=== PATIENT | male | born 1940 | race Caucasian/White ===

== ENCOUNTER 2017-07-29 12:08 | Day surgery (SDC) | payer MEDICARE ==
[2017-07-25 10:52] VITALS: BMI 33.0
[~2017-07-29 12:08] MED LIST: LACTATED RINGERS 1,000 ML IV SCH
[2017-07-29 12:23] VITALS: TEMP 97.1
[2017-07-29] MEDS ORDERED: LIDOCAINE 1% 20 ML VIAL (10MG/ML) FOR IV START INTRADERMA ONE (12:27)
[2017-07-29] MEDS ORDERED: LIDOCAINE 1% INJ 10MG/ML (20 ML MDV) ONE (13:08)
[2017-07-29] MEDS ORDERED: PROPOFOL 10 MG/ML 20 ML VIAL IV ONE (13:08)
--- NOTE | 2017-07-29 13:37 | P.PCN ---
Date of Procedure: 07/29/17 Preoperative Diagnosis: Postoperative Diagnosis: Procedure(s) Performed: Procedure: Esophagogastroduodenoscopy and biopsy. Preoperative diagnosis: Chronic reflux symptoms requiring ongoing therapy. Postoperative diagnosis: 1. Small sliding hiatal hernia with no obvious esophagitis or complicated reflux disease. 2. Mild antral gastritis. Preparation sedation: Was provided by anesthesia. Brief clinical history: The patient is a 77-year-old male who was evaluated in the office last month regarding heartburn. The patient had issues with reflux and heartburn since 1999 and and has been on treatment on and off with both PPI and H2 blockers. His symptoms has worsened over the prior 4-5 months and he was changed from Zantac to Nexium when he was seen in the office and he reported incomplete and he continues to have cough and intermittent dysphagia. The patient has history of pulmonary fibrosis. This evaluation is to assess for esophagitis, complicated reflux disease or other pathology. He had colonoscopies with me in the past but he does not believe he had any upper endoscopy before today. Procedure: With the patient on his left lateral decubitus position and after informed consent and adequate sedation, the Olympus-GIF 160 video upper endoscope was used and was advanced under direct vision through the cricopharyngeus down the esophagus. GE junction was around 40 cm from the incisors and there was a small sliding hiatal hernia. The esophagus did not show any obvious esophagitis or complicated reflux disease. The stomach was then insufflated with air and inspected in detail including the retroflex view in the cardia. There was some mottling and erythema in the antrum but no ulcers or erosions. Pyloric channel, duodenal bulb, was bulbar area and descending duodenum appeared within normal limits. I obtained multiple biopsies from the duodenum, antrum and esophagus before the endoscope was withdrawn. The patient tolerated the procedure well. Plan: The patient was reassured. Will await biopsy results. We will continue antireflux diet and measures and acid suppressive therapy. He will follow-up in the office as planned and would keep you updated on his progress. Implants: Indications for Procedure: Operative Findings: Description of Procedure:
[2017-07-29 14:02] VITALS: BP 120/71; PULSE 90; RESP 16
== END 2017-07-29 14:08 | disposition home or self-care (01) ==
LOC: ORWHC2ENDO 12:08
DX: K21.0 Gastro-esophageal reflux disease with esophagitis (principal); K44.9 Diaphragmatic hernia without obstruction or gangrene; K29.50 Unspecified chronic gastritis without bleeding; G47.33 Obstructive sleep apnea (adult) (pediatric); I10 Essential (primary) hypertension; E78.5 Hyperlipidemia, unspecified; J84.10 Pulmonary fibrosis, unspecified; Z88.8 Allergy status to other drugs, medicaments and biological substances; Z79.899 Other long term (current) drug therapy
CPT/HCPCS: 88305; 88342; 43239; J2001; J2704

== ENCOUNTER → 2018-02-11 | Outpatient (CLI) | payer MEDICARE ==
--- NOTE | 2018-02-12 21:42 | ECHOF ---
Referral Reason:R06.09 Other forms of dyspnea MEASUREMENTS -------- HEIGHT: 177.8 cm WEIGHT: 105.2 kg BP: 122/76 RVIDd: 3.6 cm (< 3.3) IVSd: 1.4 cm (0.6 - 1.1) LVIDd: 4.9 cm (3.9 - 5.3) LVPWd: 1.5 cm (0.6 - 1.1) EDV(Teich): 115 ml IVSs: 1.4 cm LVIDs: 4.0 cm LVPWs: 1.7 cm ESV(Teich): 70 ml EF(Teich): 39 % %FS: 19 % SV(Teich): 45 ml LA Diam: 3.6 cm (2.7 - 3.8) LVOT Diam: 2.4 cm LVLd A4C: 8.0 cm LVEDV MOD A4C: 82 ml LVLs A4C: 7.6 cm LVESV MOD A4C: 50 ml LVEF MOD A4C: 40 % SV MOD A4C: 33 ml LVLd A2C: 8.3 cm LVEDV MOD A2C: 86 ml LVLs A2C: 7.6 cm LVESV MOD A2C: 43 ml LVEF MOD A2C: 50 % SV MOD A2C: 43 ml EF Biplane: 46 % LVEDV MOD BP: 84 ml LVESV MOD BP: 46 ml LALs A4C: 5.0 cm LAAs A4C: 16.7 cm LAESV A-L A4C: 47 ml LAESV MOD A4C: 43 ml LALs A2C: 5.1 cm LAAs A2C: 16.8 cm LAESV A-L A2C: 47 ml LAESV MOD A2C: 45 ml LAESV(A-L): 47 ml LAESV Index (A-L): 21.28 ml/m Ao Diam: 4.0 cm (2.0 - 3.7) AV Cusp: 1.8 cm (1.5 - 2.6) EPSS: 1.0 cm MV E Aguila: 0.60 m/s MV DecT: 306 ms MV Dec Whitley: 1.9 m/s MV A Aguila: 0.87 m/s MV E/A Ratio: 0.69 E/E': 11.14 E': 0.05 m/s AV Vmax: 1.37 m/s AV maxP.55 mmHg TR Vmax: 2.62 m/s TR maxP.56 mmHg RAP: 5.00 mmHg RVSP: 32.56 mmHg MV EF SLOPE: 50.50 mm/s (70 - 150) MV EXCURSION: 1.27 cm (> 18.000) FINDINGS -------- Sinus rhythm. This was a technically adequate study. The left ventricular size is normal. There is moderate concentric left ventricular hypertrophy. O verall left ventricular systolic function is mildly impaired with, an EF between 45 - 50 %. Basal i nferior LV wall motion is hypokinetic. Basal inferoseptal LV wall motion is hypokinetic. The right ventricle is mildly enlarged. Normal LA size by volume 22+/-6 ml/m2. The right atrium is normal in size. There is mild aortic valve sclerosis. Trace amount of aortic regurgitation. The mitral valve leaflets are mildly thickened. Mild mitral annular calcification present. Mild m itral regurgitation is present. Mild tricuspid regurgitation present. Right ventricular systolic pressure is normal at < 35 mmHg. Trace/mild (physiologic) pulmonic regurgitation. The aortic root is dilated measuring 4.0cm. There is no pericardial effusion. CONCLUSIONS -------- 1. Sinus rhythm. 2. This was a technically adequate study. 3. The left ventricular size is normal. 4. There is moderate concentric left ventricular hypertrophy. 5. Overall left ventricular systolic function is mildly impaired with, an EF between 45 - 50 %. 6. Basal inferior LV wall motion is hypokinetic. 7. Basal inferoseptal LV wall motion is hypokinetic. 8. The right ventricle is mildly enlarged. 9. Normal LA size by volume 22+/-6 ml/m2. 10. The right atrium is normal in size. 11. There is mild aortic valve sclerosis. 12. Trace amount of aortic regurgitation. 13. The mitral valve leaflets are mildly thickened. 14. Mild mitral annular calcification present. 15. Mild mitral regurgitation is present. 16. Mild tricuspid regurgitation present. 17. Right ventricular systolic pressure is normal at < 35 mmHg. 18. Trace/mild (physiologic) pulmonic regurgitation. 19. The aortic root is dilated measuring 4.0cm. 20. There is no pericardial effusion. FAMILY MANAGER: MAGDIEL Mercer
== END | disposition home or self-care (01) ==
LOC: RADECHMAIN 12:58
PROVIDERS: ATTEND Family Medicine
DX: I08.3 Combined rheumatic disorders of mitral, aortic and tricuspid valves (principal)
CPT/HCPCS: 93306

== ENCOUNTER 2019-05-01 18:04 | Emergency (ER) | payer MEDICARE ==
--- NOTE | 2019-05-01 18:12 | ED ---
Dizziness HPI - General Stated Complaint: DIZZINESS Time Seen by Provider: 05/01/19 18:10 Source: RN notes reviewed, old records reviewed - History of Present Illness Initial Comments: This is a 78-year-old male the ER for evaluation presents today for evaluation regards to dizziness. Dizziness and difficulty with ambulation, patient feeling considerably trying to walk can't catch his balance occasionally has some blurred vision. No prior history of significant similar symptoms. No recent head injuries and no other complaints. MD Complaint: dizziness, difficulty walking -: hour(s) Timing: gradual onset Description: sense of movement, "room spinning", off-balance, difficulty walking History of Same: No History of Trauma: No Severity: moderate Improves With: nothing Worsens With: movement Associated Symptoms: denies other symptoms - Related Data Home Medications Medication Instructions Recorded Confirmed Aspirin EC [Ecotrin Low Dose] 81 mg PO HS 04/12/16 05/01/19 Cholecalciferol [Vitamin D3 (25 5,000 unit PO DAILY 04/12/16 05/01/19 Mcg = 1000 Iu)] Loratadine [Claritin] 10 mg PO HS 04/12/16 05/01/19 Magnesium Oxide [Mag-Ox] 400 mg PO HS 04/12/16 05/01/19 Pravastatin Sodium [Pravachol] 40 mg PO HS 04/12/16 05/01/19 Esomeprazole Magnesium [NexIUM] 20 mg PO DAILY 07/25/17 05/01/19 Benazepril HCl [Lotensin] 40 mg PO DAILY 05/01/19 05/01/19 Fluticasone Nasal [place] [Flonase 2 spray EA NOSTRIL DAILY 05/01/19 05/01/19 Nasal [place]] Furosemide [Lasix] 20 mg PO DAILY 05/01/19 05/01/19 Meloxicam [Mobic] 15 mg PO DAILY 05/01/19 05/01/19 Multivitamins, Thera [Multivitamin 1 tab PO DAILY 05/01/19 05/01/19 (formulary)] Oxybutynin Chloride [Oxybutynin 15 mg PO DAILY 05/01/19 05/01/19 Chloride ER] Rivastigmine Tartrate [Exelon] 3 mg PO BID 05/01/19 05/01/19 Spironolactone [Aldactone] 25 mg PO DAILY 05/01/19 05/01/19 Vit C/E/Zn/Coppr/Lutein/Zeaxan 1 cap PO BID 05/01/19 05/01/19 [Preservision Areds 2 Softgel] Allergies Allergy/AdvReac Type Severity Reaction Status Date / Time diphenhydramine HCl AdvReac Confusion Verified 05/01/19 18:30 [From Benadryl] Review of Systems ROS Statement: Those systems with pertinent positive or pertinent negative responses have been documented in the HPI. ROS Other: All systems not noted in ROS Statement are negative. Past Medical History Past Medical History: CVA/TIA, GERD/Reflux, Hyperlipidemia, Hypertension, Osteoarthritis (OA), Pneumonia, Sleep Apnea/CPAP/BIPAP Additional Past Medical History / Comment(s): PULMONARY FIBROSIS, bronchitis,sinus problems, shingles >5 years, constipation, TIA 2011 no effects, constipation, History of Any Multi-Drug Resistant Organisms: None Reported Past Surgical History: Appendectomy Additional Past Surgical History / Comment(s): anal fistula repair, colonoscopy, clifford cataracts-lens implant Past Anesthesia/Blood Transfusion Reactions: No Reported Reaction Smoking Status: Never smoker - Past Family History Mother Additional Family Medical History / Comment(s): with blood clot in childbirth Father Family Medical History: Cancer Additional Family Medical History / Comment(s): lung cancer General Exam General appearance: alert, in no apparent distress Head exam: Present: atraumatic, normocephalic, normal inspection Eye exam: Present: normal appearance, PERRL, EOMI. Absent: scleral icterus, conjunctival injection, nystagmus, periorbital swelling ENT exam: Present: normal exam, mucous membranes moist Neck exam: Present: normal inspection. Absent: tenderness, meningismus, lymphadenopathy Respiratory exam: Present: normal lung sounds bilaterally. Absent: respiratory distress, wheezes, rales, rhonchi, stridor Cardiovascular Exam: Present: regular rate, normal rhythm, normal heart sounds. Absent: systolic murmur, diastolic murmur, rubs, gallop, clicks GI/Abdominal exam: Present: soft, normal bowel sounds. Absent: distended, tenderness, guarding, rebound, rigid Extremities exam: Present: normal inspection, full ROM, normal capillary refill. Absent: tenderness, pedal edema, joint swelling, calf tenderness Back exam: Present: normal inspection Neurological exam: Present: alert, oriented X3, CN II-XII intact Psychiatric exam: Present: normal affect, normal mood Skin exam: Present: warm, dry, intact, normal color. Absent: rash Course Vital Signs 05/01/19 05/01/19 18:11 20:31 Temperature 98.6 F Pulse Rate 62 67 Respiratory 18 18 Rate Blood Pressure 163/81 136/72 O2 Sat by Pulse 98 97 Oximetry - Reevaluation(s) Reevaluation #1: 05/01/19 21:28 Medical records reviewed Reevaluation #2: 05/01/19 21:28 Patient ambulate without difficulty currently, no ataxia and no dizziness EKG Findings - EKG Comments: EKG Findings:: EKG shows sinus rhythm rate of 65, [place] 160, QRS 86, QTc 409 Medical Decision Making - Medical Decision Making 78 male the ER for evaluation and without dizziness or ataxia. CT brain negative. Patient can be discharged home - Lab Data Result diagrams: 05/01/19 19:15 05/01/19 19:15 Lab Results 05/01/19 05/01/19 05/01/19 Range/Units 19:15 19:15 19:15 WBC 5.9 (3.8-10.6) k/uL RBC 5.11 (4.30-5.90) m/uL Hgb 15.3 (13.0-17.5) gm/dL Hct 47.7 (39.0-53.0) % MCV 93.4 (80.0-100.0) fL MCH 29.9 (25.0-35.0) pg MCHC 32.0 (31.0-37.0) g/dL RDW 13.8 (11.5-15.5) % Plt Count 157 (150-450) k/uL Neutrophils % 47 % Lymphocytes % 38 % Monocytes % 7 % Eosinophils % 5 % Basophils % 1 % Neutrophils # 2.8 (1.3-7.7) k/uL Lymphocytes # 2.2 (1.0-4.8) k/uL Monocytes # 0.4 (0-1.0) k/uL Eosinophils # 0.3 (0-0.7) k/uL Basophils # 0.0 (0-0.2) k/uL PT 10.2 (9.0-12.0) sec INR 0.9 (<1.2) APTT 23.8 (22.0-30.0) sec Sodium 141 (137-145) mmol/L Potassium 4.3 (3.5-5.1) mmol/L Chloride 103 (98-107) mmol/L Carbon Dioxide 29 (22-30) mmol/L Anion Gap 9 mmol/L BUN 29 H (9-20) mg/dL Creatinine 0.98 (0.66-1.25) mg/dL Est GFR (CKD-EPI)AfAm 86 (>60 ml/min/1.73 sqM) Est GFR (CKD-EPI)NonAf 75 (>60 ml/min/1.73 sqM) Glucose 89 (74-99) mg/dL Calcium 9.7 (8.4-10.2) mg/dL Phosphorus 3.1 (2.5-4.5) mg/dL Magnesium 2.0 (1.6-2.3) mg/dL Total Bilirubin 0.4 (0.2-1.3) mg/dL AST 27 (17-59) U/L ALT 23 (21-72) U/L Alkaline Phosphatase 45 (38-126) U/L Troponin I (0.000-0.034) ng/mL Total Protein 7.6 (6.3-8.2) g/dL Albumin 4.5 (3.5-5.0) g/dL Urine Color Urine Appearance (Clear) Urine pH (5.0-8.0) Ur Specific [place] (1.001-1.035) Urine Protein (Negative) Urine Glucose (UA) (Negative) Urine Ketones (Negative) Urine Blood (Negative) Urine Nitrite (Negative) Urine Bilirubin (Negative) Urine Urobilinogen (<2.0) mg/dL Ur Leukocyte Esterase (Negative) 05/01/19 05/01/19 Range/Units 19:15 19:40 WBC (3.8-10.6) k/uL RBC (4.30-5.90) m/uL Hgb (13.0-17.5) gm/dL Hct (39.0-53.0) % MCV (80.0-100.0) fL MCH (25.0-35.0) pg MCHC (31.0-37.0) g/dL RDW (11.5-15.5) % Plt Count (150-450) k/uL Neutrophils % % Lymphocytes % % Monocytes % % Eosinophils % % Basophils % % Neutrophils # (1.3-7.7) k/uL Lymphocytes # (1.0-4.8) k/uL Monocytes # (0-1.0) k/uL Eosinophils # (0-0.7) k/uL Basophils # (0-0.2) k/uL PT (9.0-12.0) sec INR (<1.2) APTT (22.0-30.0) sec Sodium (137-145) mmol/L Potassium (3.5-5.1) mmol/L Chloride (98-107) mmol/L Carbon Dioxide (22-30) mmol/L Anion Gap mmol/L BUN (9-20) mg/dL Creatinine (0.66-1.25) mg/dL Est GFR (CKD-EPI)AfAm (>60 ml/min/1.73 sqM) Est GFR (CKD-EPI)NonAf (>60 ml/min/1.73 sqM) Glucose (74-99) mg/dL Calcium (8.4-10.2) mg/dL Phosphorus (2.5-4.5) mg/dL Magnesium (1.6-2.3) mg/dL Total Bilirubin (0.2-1.3) mg/dL AST (17-59) U/L ALT (21-72) U/L Alkaline Phosphatase (38-126) U/L Troponin I <0.012 (0.000-0.034) ng/mL Total Protein (6.3-8.2) g/dL Albumin (3.5-5.0) g/dL Urine Color Light Yellow Urine Appearance Clear (Clear) Urine pH 5.0 (5.0-8.0) Ur Specific [place] 1.007 (1.001-1.035) Urine Protein Negative (Negative) Urine Glucose (UA) Negative (Negative) Urine Ketones Negative (Negative) Urine Blood Negative (Negative) Urine Nitrite Negative (Negative) Urine Bilirubin Negative (Negative) Urine Urobilinogen <2.0 (<2.0) mg/dL Ur Leukocyte Esterase Negative (Negative) - Radiology Data Radiology results: report reviewed (CT brain is negative for acute disease), image reviewed Disposition Clinical Impression: Vertigo, Dizziness Disposition: HOME SELF-CARE Condition: Good Instructions (If sedation given, give patient instructions): Dizziness (ED) Is patient prescribed a controlled substance at d/c from ED?: No Referrals: Minor Alves MD [Primary Care Provider] - 1-2 days
[2019-05-01 18:18] VITALS: RESP 18
[2019-05-01] MEDS ORDERED: SODIUM CHLORIDE 0.9% 1,000 ML IV STA (18:45)
[2019-05-01 19:29] LABS: Basophils % (A) 1 %; Eosinophils # (A) 0.3 k/uL (0-0.7); Eosinophils % (A) 5 %; HCT 47.7 % (39.0-53.0); HGB 15.3 gm/dL (13.0-17.5); Lymphocytes # (A) 2.2 k/uL (1.0-4.8); Lymphocytes % (A) 38 %; MCH 29.9 pg (25.0-35.0); MCV 93.4 fL (80.0-100.0); Monocytes # (A) 0.4 k/uL (0-1.0); Monocytes % (A) 7 %; Neutrophils # (A) 2.8 k/uL (1.3-7.7); Neutrophils % (A) 47 %; Platelet Count 157 k/uL (150-450); RBC 5.11 m/uL (4.30-5.90); RDW 13.8 % (11.5-15.5); WBC 5.9 k/uL (3.8-10.6)
[2019-05-01 19:37] LABS: INR 0.9 (<1.2); Partial Thromboplastin Time 23.8 sec (22.0-30.0); Prothrombin Time 10.2 sec (9.0-12.0)
[2019-05-01 19:42] LABS: Albumin 4.5 g/dL (3.5-5.0); Calcium 9.7 mg/dL (8.4-10.2); Phosphorus 3.1 mg/dL (2.5-4.5); Potassium 4.3 mmol/L (3.5-5.1); Total Bilirubin 0.4 mg/dL (0.2-1.3); Total Protein 7.6 g/dL (6.3-8.2)
[2019-05-01 19:53] LABS: Appearance,Urine Clear (Clear); Bilirubin,Urine Negative (Negative); Blood,Urine Negative (Negative); Color,Urine Light Yellow; Glucose,Urine (UA) Negative (Negative); Ketones,Urine Negative (Negative); Leukocyte Esterase,Urine Negative (Negative); Nitrite,Urine Negative (Negative); Protein,Urine Negative (Negative); Specific Gravity,Urine 1.007 (1.001-1.035); Urobilinogen,Urine <2.0 mg/dL (<2.0)
--- NOTE | 2019-05-01 20:49 | CT ---
EXAMINATION: CT brain wo con DATE AND TIME: 05/01/2019 7:31 PM CLINICAL INDICATION: PHH; weakness TECHNIQUE: Department protocol. COMPARISON: None. FINDINGS: The calvarium is intact. There is no intracranial hemorrhage. There is no intracranial mass or mass effect. No definite new intra-axial or extra-axial attenuation defect. The paranasal sinuses, middle ear cavities, and mastoid sinus air cells are clear. The orbits are unremarkable. IMPRESSION: NO ACUTE PROCESS.
--- NOTE | 2019-05-01 20:51 | XR ---
EXAMINATION: XR chest 2V DATE AND TIME: 05/01/2019 7:34 PM CLINICAL INDICATION: PHH; Weakness TECHNIQUE: Departmental protocol COMPARISON: 04/12/2016 FINDINGS: Coarse interstitial pattern consistent with baseline pulmonary fibrosis. There are scattered ill-defined added opacities not seen on the prior study. These include partial ai rlessness within the right lower lobe and right middle lobe with evidence of relatively small right p leural effusion. Moderately enlarged cardiac silhouette redemonstrated. No definite acute skeletal or soft tissue findings. IMPRESSION: Suspect right middle and lower lobe bronchopneumonia with small right pleural effusion. 6 week follow-up PA and lateral chest radiographs recommended to prove resolution.
[2019-05-01 21:43] VITALS: BP 156/86; PULSE 87; TEMP 98.5
== END 2019-05-01 21:43 | disposition home or self-care (01) ==
LOC: EC 18:04
DX: R42 Dizziness and giddiness (principal); R26.2 Difficulty in walking, not elsewhere classified; H53.8 Other visual disturbances; K21.9 Gastro-esophageal reflux disease without esophagitis; E78.5 Hyperlipidemia, unspecified; I10 Essential (primary) hypertension; M19.90 Unspecified osteoarthritis, unspecified site; G47.30 Sleep apnea, unspecified; Z88.8 Allergy status to other drugs, medicaments and biological substances; Z79.1 Long term (current) use of non-steroidal anti-inflammatories (NSAID); Z79.51 Long term (current) use of inhaled steroids; Z79.82 Long term (current) use of aspirin; Z79.899 Other long term (current) drug therapy; Z86.73 Personal history of transient ischemic attack (TIA), and cerebral infarction without residual deficits; Z99.89 Dependence on other enabling machines and devices
CPT/HCPCS: 36415; 70450; 71046; 80053; 81003; 83735; 84100; 84484; 85025; 85610; 85730; 93005; 96360; 99285